=== PATIENT | female | born 1950 | race Caucasian/White ===

== ENCOUNTER 2016-10-05 08:26 | Day surgery (SDC) | payer MEDICARE ==
[~2016-10-05] VITALS: Ht 162.6 cm; Wt 74.4 kg
[2016-10-05] VITALS (12 sets, daily range): BP systolic 121–202; BP diastolic 56–116
[~2016-10-05 08:26] MED LIST: ALBU2.5V4 IH; ALPR0.5T7 PO; AMLO10TA2 PO; AMLO10TA4 PO; AMLO5TAB2 PO; ASP325TEC PO; ASP81TEC PO; ASPI-983 PO; ATOR80TA PO; ATOR80TA75 PO; ATOR80TA76 PO; BISA5TAB8 PO; BUDE10.2 INH; BUDE6HFA IH; CARV25TA PO; CARV3.12 PO; CARV6.252 PO; CLOP75TA28 PO; CLOP75TA69 PO; CLPD75T PO; DILT60TA PO; DOCU-143 PO; FERR-74 PO; FRSM40T PO; FURO-125 PO; FURO40TA4 PO; GLIM1TAB PO; GUAI600T43 PO; HYDR-3924 PO; ISM60TCR PO; LATA2.5D5 OU; LISI-556 PO; LISI10TA2 PO; MTF500T PO; PANT40TA3 PO; PARO20TA5 PO; PARO20TA57 PO; POLY255P PO; POTA10CA43 PO; QUET25TA73 PO; RT-ALBUINH INH; SUCR1TAB PO; SULF-222 PO; TIOT18CA IH; TRAM50TA2 PO; Tramadol Hcl PO; UMEC1BLS IH
[2016-10-05] MEDS ORDERED: HEParin (CATH LAB) 2,000 ML IV ONE (08:28)
[2016-10-05] MEDS ORDERED: NS IV 1000 ML 1,000 ML ONE ×2 (08:28→09:48)
[2016-10-05] MEDS ORDERED: LIDOCAINE 1% INJ 20 ML (XYLOCAINE) VIAL ONE (08:28)
[2016-10-05 09:13] LABS: BILIRUBIN,URINE NEGATIVE (NEGATIVE); KETONES,URINE NEGATIVE (NEGATIVE); LEUKOCYTE ESTERASE ,URINE 1+ (NEGATIVE); NITRITE,URINE NEGATIVE (NEGATIVE); PH,URINE 7 (5-9); PROTEIN,URINE 4+ (NEGATIVE); UROBILINOGEN,URINE NORMAL (NORMAL)
[2016-10-05] MEDS ORDERED: NS IV 1000 ML 1,000 ML IV ONE (09:15)
[2016-10-05 09:17] LABS: MEAN PLATELET VOLUME 9.3 FL (7.4-10.4); RED BLOOD COUNT 3.59 10^6/uL (4.35-5.85); RED CELL DISTRIBUTION WIDTH 15.4 % (10.0-14.5); WHITE BLOOD COUNT 6.9 10^3/uL (4.3-11.0)
--- NOTE | 2016-10-05 09:28 | Diagnostic Imaging Report ---
EXAMINATION: Portable upright radiograph of the chest. INDICATION: Peripheral vascular disease. FINDINGS: The heart is moderately enlarged. There is minimal vascular congestion. The right lung base demonstrate infiltrate and/or atelectasis and adjacent small to moderate effusion minimally improved compared to 09/10/16 exam. No pneumothorax. The mediastinum and forrest appear unremarkable. IMPRESSION: Cardiomegaly with minimal vascular congestion. Persistent right basilar infiltrate or atelectasis with associated small to moderate effusion. Dictated by: Dictated on workstation # [id number]
[2016-10-05 09:31] LABS: INR 0.9 (0.8-1.4); PROTHROMBIN TIME PATIENT 12.2 SEC (12.2-14.7)
[2016-10-05 09:41] LABS: ALBUMIN 3.9 G/DL (3.2-4.5); BILIRUBIN,TOTAL 0.4 MG/DL (0.1-1.0); CALCIUM 9.1 MG/DL (8.5-10.1); CREATININE SERUM 1.75 MG/DL (0.60-1.30); POTASSIUM 4.7 MMOL/L (3.6-5.0); TOTAL PROTEIN 7.5 G/DL (6.4-8.2)
[2016-10-05 09:41] LABS: WBC,URINE 0-2 /HPF
[2016-10-05] MEDS ORDERED: MIDAZOLAM 5 MG/5 ML (VERSED) VIAL ONE (09:48)
[2016-10-05] MEDS ORDERED: NITROGLYCERIN DRIP 25 MG/D5W 250 ML IV ONE (09:48)
[2016-10-05] MEDS ORDERED: fentaNYL INJECTION 100 MCG/2 ML AMP ONE (09:48)
[2016-10-05] MEDS ORDERED: CLOP75TA69 PO (09:52)
[2016-10-05] MEDS ORDERED: CARV3.122 PO (09:52)
[2016-10-05] MEDS ORDERED: DILT30TA PO (09:52)
[2016-10-05] MEDS ORDERED: FURO20TA4 PO (09:52)
[2016-10-05] MEDS ORDERED: HEParin 1000 UNIT/ML (10ML VIAL) FOR BOLUS ONE (10:01)
--- NOTE | 2016-10-05 10:03 | Cardiac Procedure Note-CS/ASA ---
Pre-Procedure Note Pre-Op Procedure Note H&P Reviewed The H&P was reviewed, patient examined and no changes noted. Date H&P Reviewed: Oct 05, 2016 Time H&P Reviewed: 10:02 Conscious Sedation Pre-Proced Time Reviewed: 10:02 ASA Class: 3 Airway Mallampati Classification: ([place] appropriate class) I. II. III, IV Lungs Heart ASA score ASA 1: a normal healthy patient ASA 2: a patient with a mild systemic disease (mid diabetes, controlled hypertension, obesity x ASA 3: a patient with a severe systemic disease that limits activity (angina , COPD, prior Myocardial infarction) ASA 4: a patient with an incapacitating disease that is a constant threat to life (CHF, renal failure) ASA 5: a moribund patient not expected to survive 24 hrs. (ruptured aneurysm) ASA 6: a declared brain patient whose organs are being harvested. For emergent operations, add the letter E after the classification Grade 3 Sedation Plan: Analgesia, Amnesia, Plan communicated to team members, Discussed options with patient/fam, Discussed risks with patient/fam Note The patient is an appropriate candidate to undergo the planned procedure, sedation, and anesthesia. The patient immediately re-assessed prior to indication. ANTONIETA VALADEZ MD Oct 05, 2016 10:03
[2016-10-05] MEDS: NS IV 1000 ML 1,000 ML IV SCH ×4 (10:39→21:34)
[2016-10-05] MEDS ORDERED: meTOprolol 5 MG/5 ML (LOPRESSOR) VIAL ONE (11:19)
[2016-10-05] MEDS ORDERED: ENALAPRILAT 2.5 MG/2 ML (VASOTEC) VIAL IV ONE (11:19)
[2016-10-05] MEDS ORDERED: ASPIRIN 325 MG (5 GR) TABLET ONE (11:33)
[2016-10-05] MEDS ORDERED: CLOPIDOGREL 300 MG (PLAVIX) TABLET PO ONE ×2 (11:34→11:40)
[2016-10-05] MEDS ORDERED: BISACODYL 5 MG (DULCOLAX) TABLET PO SCH (11:45)
[2016-10-05] MEDS ORDERED: RT-ALBUTEROL SULF 2.5 MG/3 ML PRE-MIX VIAL IH PRN (11:45)
[2016-10-05] MEDS ORDERED: ALPRAZolam 0.5 MG (XANAX) TAB PO PRN (11:45)
[2016-10-05] MEDS ORDERED: PATIENT MAY USE OWN MEDS, ALL PO SCH (11:45)
--- NOTE | 2016-10-05 12:55 | DISCHARGE SUMMARY ---
PROCEDURE PHYSICIAN: ANTONIETA VALADEZ PERIPHERAL ANGIOGRAM WITH ANGIOPLASTY REPORT DATE OF PROCEDURE: 10/05/2016 REFERRING PHYSICIAN: Neela Pereira BRIEF HISTORY: Mrs. Cruz is a 66-year-old lady with peripheral arterial disease. She underwent complex intervention to the right lower extremity noted to have a lesion of the left SFA. We are planning to evaluate the SFA and evaluate the run of the right lower extremity. The patient continued to have pain in her left leg. PROCEDURE NOTE: After explaining the procedure to the patient, all pros and cons were explained. All questions were answered. The patient signed a consent, which was placed on the cardiac catheterization laboratory. The right groin was prepped in a sterile fashion. 6-Malian sheath was placed in the right femoral artery. Runoff of the right lower extremity was done. Then I used the crossover catheter, advanced a Storq wire and exchanged it with a long sheath 45 mm 6-Malian to the left common femoral artery. Runoff of the left lower extremity was done. The patient had a significant lesion. I proceeded initially with balloon angioplasty I used [place] 5 x 20 x 80 mm balloon, inflated to 5.5 mm. Then I proceeded with advancement of a Storq wire down to the distal SFA/popliteal artery. Advanced a straight catheter, removed the wire and performed runoff with manual injection with 50/50 contrast and saline to the popliteal artery and trifurcation, then 2 separate views below the knee to the peroneal trunk, then to the foot artery. At this point I reintroduce the Storq wire and removed the straight catheter. I decided to proceed with drug coated balloon angioplasty to the SFA. I used IN.PACT Admiral 6.0 x 40 x 130 placed at the ostium of the SFA. Balloon inflation was done up to 13 atmospheres which is 6.43, inflated for 3 minutes. Angiogram showed excellent results, no residual stenosis. At that point I reintroduce the straight catheter and measured the gradient across the lesion. There was 5 mmHg gradient. Sheath was exchanged again into short 6-Malian sheath. The patient was started on isosorbide nitroglycerin drip and given 5 mg of IV Lopressor and 5 mg of Vasotec. Mynx deployed. Hemostasis achieved. No complication noted. CONCLUSION: 1. Severe stenosis at the left proximal portion of the superficial femoral artery with successful balloon angioplasty, then drug-coated balloon using 6 IN.TACT Admiral 6 x 40 x 130, expanded to 6.43 mm with excellent results. No residual stenosis. Heavily calcified artery down to the trifurcation with good flow below the trifurcation. Nonobstructive disease. 2. Right lower extremity runoff was done using injection through the sheath showed patent stents with mild disease distally, nonobstructive disease. 3. Total contrast used in this procedure is 15 mL. IN DISCUSSION AND RECOMMENDATION: I will continue maximizing medical therapy. Thank you for allowing me to participate in the management of Mrs. Cruz. FINAL DIAGNOSIS: 1. Peripheral arterial disease. 2. Claudication. 3. Hypertension. 4. Hyperlipidemia. 5. Chronic renal insufficiency. 6. Anemia Job ID: [id number] Dictated Date: 10/05/2016 11:44:39 [employer]imator Printing Plate Making Date: 10/05/2016 12:53:20/nisha
[2016-10-05] MEDS: HYDRALAZINE 50 MG PO SCH ×2 (14:00→21:06)
[2016-10-05] MEDS: DILTIAZEM 30 MG (CARDIZEM) TAB PO SCH ×3 (14:00→21:07)
[2016-10-05] MEDS: SUCRALFATE 1 GM (CARAFATE) TAB PO SCH ×2 (16:20→20:23)
[2016-10-05] MEDS ORDERED: ASPIRIN E.C. 81 MG (ECOTRIN) TAB PO SCH (21:00)
[2016-10-05] MEDS ORDERED: ATORVASTATIN 80 MG (LIPITOR) TABLET PO SCH (21:00)
[2016-10-05] MEDS ORDERED: FERROUS SULF 325 MG (IRON) TAB PO SCH (21:00)
[2016-10-05] MEDS ORDERED: QUEtiapine 25 MG (SEROquel) TAB IMMEDIATE RELEASE PO SCH (21:00)
[2016-10-05] MEDS ORDERED: LATANOPROST 0.005% (XALATAN) OPHTH SOLN 2.5 ML OU SCH (21:00)
[2016-10-05] MEDS: oxyCODONE/APAP 5/325MG (PERCOCET 5) TABLET PO PRN (21:05)
[2016-10-05] MEDS: CARVEDILOL 3.125 MG (COREG) TABLET PO SCH (21:08)
[2016-10-06] VITALS (8 sets, daily range): BP systolic 117–170; BP diastolic 57–79
[2016-10-06] MEDS: oxyCODONE/APAP 5/325MG (PERCOCET 5) TABLET PO PRN (02:44)
[2016-10-06 03:56] LABS: MEAN PLATELET VOLUME 9.5 FL (7.4-10.4); RED BLOOD COUNT 2.81 10^6/uL (4.35-5.85); RED CELL DISTRIBUTION WIDTH 15.4 % (10.0-14.5); WHITE BLOOD COUNT 5.3 10^3/uL (4.3-11.0)
[2016-10-06 04:14] LABS: CREATININE SERUM 1.53 MG/DL (0.60-1.30); POTASSIUM 4.3 MMOL/L (3.6-5.0)
[2016-10-06] MEDS: SUCRALFATE 1 GM (CARAFATE) TAB PO SCH (06:44)
[2016-10-06] MEDS: NS IV 1000 ML 1,000 ML IV SCH ×2 (06:45→06:55)
--- NOTE | 2016-10-06 06:49 | Cardiology Progress Note ---
Subjective Subjective/Events-last exam Patient is feeling well, groin is healing well, no hematoma or bleed Review of Systems General: No Chills, No Night Sweats, No Fatigue, No Malaise, No Appetite, No Other HEENT: No Head Aches, No Visual Changes, No Eye Pain, No Ear Pain, No Dysphasia , No Sinus Congestion, No Post Nasal Drip, No Sore Throat, No Other Pulmonary: No Dyspnea, No Cough, No Pleuritic Chest Pain, No Other Cardiovascular: No: Chest Pain, Edema, Lt Headedness, Orthopnea, Other, Palpitations, Paroxysmal Noc. Dyspnea Objective-Cardiology Exam Last Set of Vital Signs Vital Signs 10/06/16 10/06/16 04:00 06:00 Temp 97.6 Pulse 58 Resp 11 B/P 145/64 Pulse Ox 93 O2 Delivery Nasal Cannula O2 Flow Rate 3.00 Capillary Refill : Less Than 3 Seconds I&O Intake and Output 10/06/16 00:00 Intake Total 1590 ml Output Total 850 ml Balance 740 ml Intake Oral 590 ml IV Total 1000 ml Output Urine Total 850 ml General: Alert, Oriented X3, Cooperative HEENT: Atraumatic, PERRLA Neck: Supple, No JVD, No Thyromegaly Lungs: Clear to Auscultation, Normal Air Movement Heart: Regular Rate, Normal S1, Normal S2, No Murmurs Abdomen: Normal Bowel Sounds, Soft, No Tenderness, No Hepatosplenomegaly, No Masses Extremities: No Clubbing, No Cyanosis, No Edema, Normal Pulses, No Tenderness/ Swelling Skin: No Rashes, No Breakdown, No Significant Lesion Neuro: Normal Gait, Normal Speech, Strength at 5/5 X4 Ext, Normal Tone, Sensation Intact Psych/Mental Status: Mental Status NL, Mood NL Results Lab Laboratory Tests 10/05/16 09:05 10/06/16 03:43 A/P-Cardiology Admission Diagnosis Coronary artery disease Peripheral arterial disease Hypertension Hyperlipidemia Anemia Assessment/Plan Peripheral arterial disease, status post balloon angioplasty to the proximal SFA with excellent results, minimal blood loss, minimal contrast use. Anemia, worse today probably secondary to aggressive hydration. Patient has chronic anemia, patient received blood transfusion in the past. I will do anemia analyzer and refer her for evaluation as an outpatient with bobbin hauler Coronary artery disease, multiple intervention the past. Clinically stable. Continue to monitor Hypertension, restart home medication, monitor blood pressure Chronic renal insufficiency, slight improvement after aggressive hydration. Hyperlipidemia, continue current medication monitor ANTONIETA VALADEZ MD Oct 06, 2016 06:49
--- NOTE | 2016-10-06 06:51 | Discharge Inst-Post CATH ---
Discharge Inst-CATH Post Cardiac Cath D/C Inst Follow Up/Plan Please schedule appointment with Dr. Pebbles Ortiz's office for evaluation for anemia Appointment with Dr. Tan's office in one to 2 weeks CARDIAC CATH DISCHARGE INSTRUCTIONS *Hold Metformin for 48 hours post heart cath. ACTIVITY * Go Home directly and rest. * Limit activity of the leg (or wrist if it was used) for 7 days including aerobics, swimming, jogging, bicycling, etc. * Restrict stair-climbing for 7 days if possible, if not, climb up with your non -cath leg, then bring together on the same step. * Avoid lifting, pushing, pulling or excessive movement of the affected extremity for 7 days. * Customary sexual activity may be resumed after 2 days-use caution not to use a position that strains or causes pain to the affected extremity. * No driving for 24 hours. * NO SMOKING. * Avoid straining for bowel movements for 7 days. * Gentle walking on level ground is allowed. * Returning to work will depend on the type of procedure and the results. Your doctor will discuss this with you. CALL YOUR DOCTOR FOR ANY OF THE FOLLOWING: *If bleeding from the puncture site occurs- Apply gentle pressure to site with clean cloth and call your doctor or EMS. * If a knot or lump forms under the skin, increases in size, or causes pain. * If bruising appears to be worsening or moving further down your leg instead of disappearing. * Temperature above 101 F. CARE OF YOUR GROIN INCISION; * Bruising or purple discoloration of the skin near the puncture site is common. * You may shower only, no bathtub bathing for 5 days. Be careful to avoid slipping as your leg may feel stiff. * If a closure device was used on your femoral artery, please see the attached guide regarding care of the device and your leg. * REMOVE the dressing from your groin the next day after your procedure in the shower. CARE OF YOUR WRIST INCISION; * Bruising or purple discoloration of the skin near the puncture site is common. * You may shower. * DO NOT submerge wrist. * Remove dressing in 24 hours. ANTONIETA TAN MD Oct 06, 2016 06:51
[2016-10-06 07:06] LABS: BASOPHILS % (AUTO) 1 % (0-10); EOSINOPHILS # (AUTO) 0.3 10^3/uL (0.0-0.3); EOSINOPHILS % (AUTO) 7 % (0-10); LYMPHOCYTES # (AUTO) 0.7 X 10^3 (1.0-4.0); LYMPHOCYTES % (AUTO) 14 % (12-44); MEAN CORPUSCULAR HEMOGLOBIN 29 PG (25-34); MEAN CORPUSCULAR HGB CONC 31 G/DL (32-36); MEAN CORPUSCULAR VOLUME 93 FL (80-99); MEAN PLATELET VOLUME 8.7 FL (7.4-10.4); MONOCYTES # (AUTO) 0.5 X 10^3 (0.0-1.0); MONOCYTES % (AUTO) 10 % (0-12); NEUTROPHILS # (AUTO) 3.3 X 10^3 (1.8-7.8); NEUTROPHILS % (AUTO) 69 % (42-75); PLATELET COUNT 165 10^3/uL (130-400); RED BLOOD COUNT 3.16 10^6/uL (4.35-5.85); RED CELL DISTRIBUTION WIDTH 15.6 % (10.0-14.5); RETICULOCYTE % 0.81 % (0.50-2.40); WHITE BLOOD COUNT 4.8 10^3/uL (4.3-11.0)
[2016-10-06 07:56] LABS: BAND NEUTROPHILS 0 %; LYMPHOCYTES % (MANUAL) 11 %; NEUTROPHILS % (MANUAL) 70 %
[2016-10-06 07:57] LABS: ANISOCYTOSIS SLIGHT; BASOPHILS % (MANUAL) 1 %; EOSINOPHILS % (MANUAL) 8 %; HYPOCHROMASIA SLIGHT
[2016-10-06] MEDS: CARVEDILOL 3.125 MG (COREG) TABLET PO SCH (08:36)
[2016-10-06] MEDS: DILTIAZEM 30 MG (CARDIZEM) TAB PO SCH (08:37)
[2016-10-06] MEDS: HYDRALAZINE 50 MG PO SCH (08:38)
[2016-10-06] MEDS ORDERED: PARoxetine 20 MG (PAXIL) TAB PO SCH (09:00)
[2016-10-06] MEDS ORDERED: CLOPIDOGREL 75 MG (PLAVIX) TABLET PO SCH (09:00)
[2016-10-06] MEDS ORDERED: PANTOPRAZOLE 40 MG (PROTONIX) TAB PO SCH (09:00)
[2016-10-06] MEDS ORDERED: FUROSEMIDE 20 MG (LASIX) TAB PO SCH (09:00)
[2016-10-06] MEDS ORDERED: ISOSORBIDE MONONITRATE 60 MG (IMDUR) TAB PO SCH (09:00)
[2016-10-06] MEDS ORDERED: DOCUSATE SODIUM 100 MG (COLACE) CAP PO SCH (09:00)
[2016-10-07 07:49] LABS: %SAT TOTAL IRON BINDING CAPIC 22 % (15-50); IPF LEVEL 3.2 % (0.0-7.2); TIBC 240 L UG/DL (280-380); UIBC 188 UG/DL (55-450)
[2016-10-10 08:26] LABS: FOLIC ACID 6.3 NG/ML (1.5-24.0)
== END 2016-10-06 11:10 | disposition home or self-care (01) ==
LOC: CATH 08:26 → ICU 12:10 → CATH 10-06 11:10
PROVIDERS: ATTEND Internal Medicine Cardiovascular Disease
DX: I70.213 Atherosclerosis of native arteries of extremities with intermittent claudication, bilateral legs (principal); I25.10 Atherosclerotic heart disease of native coronary artery without angina pectoris; I12.9 Hypertensive chronic kidney disease with stage 1 through stage 4 chronic kidney disease, or unspecified chronic kidney disease; N18.9 Chronic kidney disease, unspecified; I69.398 Other sequelae of cerebral infarction; R53.1 Weakness; I50.9 Heart failure, unspecified; I49.5 Sick sinus syndrome; E78.5 Hyperlipidemia, unspecified; E11.22 Type 2 diabetes mellitus with diabetic chronic kidney disease; J44.9 Chronic obstructive pulmonary disease, unspecified; Z79.899 Other long term (current) drug therapy; Z87.891 Personal history of nicotine dependence; Z95.820 Peripheral vascular angioplasty status with implants and grafts; Z95.5 Presence of coronary angioplasty implant and graft
CPT/HCPCS: 36246; 36415; 37224; 71010; 75716; 80048; 80053; 81000; 82607; 82746; 83540; 83550; 85007; 85027; 85045; 85055; 85610; 85730; 87081; 93005

== ENCOUNTER 2017-01-05 15:16 | Outpatient (RCR) | payer MEDICARE ==
[2016-10-20 16:20] LABS: BASOPHILS # (AUTO) 0.1 10^3/uL (0.0-0.1); BASOPHILS % (AUTO) 1 % (0-10); EOSINOPHILS # (AUTO) 0.2 10^3/uL (0.0-0.3); EOSINOPHILS % (AUTO) 4 % (0-10); LYMPHOCYTES # (AUTO) 0.5 X 10^3 (1.0-4.0); LYMPHOCYTES % (AUTO) 9 % (12-44); MEAN CORPUSCULAR HEMOGLOBIN 29 PG (25-34); MEAN CORPUSCULAR HGB CONC 31 G/DL (32-36); MEAN CORPUSCULAR VOLUME 93 FL (80-99); MEAN PLATELET VOLUME 9.2 FL (7.4-10.4); MONOCYTES # (AUTO) 0.5 X 10^3 (0.0-1.0); MONOCYTES % (AUTO) 8 % (0-12); NEUTROPHILS # (AUTO) 4.5 X 10^3 (1.8-7.8); NEUTROPHILS % (AUTO) 78 % (42-75); PLATELET COUNT 304 10^3/uL (130-400); RED BLOOD COUNT 3.11 10^6/uL (4.35-5.85); RED CELL DISTRIBUTION WIDTH 16.1 % (10.0-14.5); RETICULOCYTE % 1.52 % (0.50-2.40); WHITE BLOOD COUNT 5.8 10^3/uL (4.3-11.0)
[2016-10-20 16:56] LABS: BILIRUBIN,TOTAL 0.4 MG/DL (0.1-1.0); CALCIUM 8.9 MG/DL (8.5-10.1); CREATININE SERUM 1.67 MG/DL (0.60-1.30); POTASSIUM 4.2 MMOL/L (3.6-5.0); TOTAL PROTEIN 7.3 G/DL (6.4-8.2)
[2016-10-20 17:23] LABS: THYROID STIMULATING HORMONE 2.61 UIU/ML (0.35-4.94)
[2016-11-24 16:24] LABS: BASOPHILS # (AUTO) 0.1 10^3/uL (0.0-0.1); BASOPHILS % (AUTO) 1 % (0-10); EOSINOPHILS # (AUTO) 0.1 10^3/uL (0.0-0.3); EOSINOPHILS % (AUTO) 3 % (0-10); LYMPHOCYTES # (AUTO) 0.5 X 10^3 (1.0-4.0); LYMPHOCYTES % (AUTO) 12 % (12-44); MEAN CORPUSCULAR HEMOGLOBIN 30 PG (25-34); MEAN CORPUSCULAR HGB CONC 31 G/DL (32-36); MEAN CORPUSCULAR VOLUME 99 FL (80-99); MEAN PLATELET VOLUME 8.8 FL (7.4-10.4); MONOCYTES # (AUTO) 0.5 X 10^3 (0.0-1.0); MONOCYTES % (AUTO) 10 % (0-12); NEUTROPHILS # (AUTO) 3.4 X 10^3 (1.8-7.8); NEUTROPHILS % (AUTO) 74 % (42-75); PLATELET COUNT 310 10^3/uL (130-400); RED BLOOD COUNT 2.72 10^6/uL (4.35-5.85); RED CELL DISTRIBUTION WIDTH 15.6 % (10.0-14.5); RETICULOCYTE % 3.37 % (0.50-2.40); WHITE BLOOD COUNT 4.6 10^3/uL (4.3-11.0)
[2016-11-24 16:55] LABS: ALBUMIN 3.9 G/DL (3.2-4.5); BILIRUBIN,TOTAL 0.3 MG/DL (0.1-1.0); CALCIUM 9.1 MG/DL (8.5-10.1); CREATININE SERUM 1.6 MG/DL (0.60-1.30); POTASSIUM 3.9 MMOL/L (3.6-5.0); TOTAL PROTEIN 6.9 G/DL (6.4-8.2)
[2016-12-22 15:21] LABS: BASOPHILS # (AUTO) 0.1 10^3/uL (0.0-0.1); BASOPHILS % (AUTO) 2 % (0-10); EOSINOPHILS # (AUTO) 0.2 10^3/uL (0.0-0.3); EOSINOPHILS % (AUTO) 4 % (0-10); LYMPHOCYTES # (AUTO) 0.6 X 10^3 (1.0-4.0); LYMPHOCYTES % (AUTO) 15 % (12-44); MEAN CORPUSCULAR HEMOGLOBIN 29 PG (25-34); MEAN CORPUSCULAR HGB CONC 30 G/DL (32-36); MEAN CORPUSCULAR VOLUME 95 FL (80-99); MEAN PLATELET VOLUME 9.2 FL (7.4-10.4); MONOCYTES # (AUTO) 0.5 X 10^3 (0.0-1.0); MONOCYTES % (AUTO) 12 % (0-12); NEUTROPHILS # (AUTO) 2.7 X 10^3 (1.8-7.8); NEUTROPHILS % (AUTO) 68 % (42-75); PLATELET COUNT 236 10^3/uL (130-400); RED BLOOD COUNT 3.01 10^6/uL (4.35-5.85); RED CELL DISTRIBUTION WIDTH 13.8 % (10.0-14.5); RETICULOCYTE % 0.73 % (0.50-2.40)
[2016-12-22 15:48] LABS: ALBUMIN 3.8 G/DL (3.2-4.5); BILIRUBIN,TOTAL 0.3 MG/DL (0.1-1.0); CALCIUM 8.9 MG/DL (8.5-10.1); CREATININE SERUM 1.56 MG/DL (0.60-1.30); POTASSIUM 4.2 MMOL/L (3.6-5.0); TOTAL PROTEIN 6.8 G/DL (6.4-8.2)
[2016-12-23 06:55] LABS: %SAT TOTAL IRON BINDING CAPIC 13 L % (15-50); TIBC 295 UG/DL (280-380); UIBC 256 UG/DL (55-450)
[~2017-01-05 15:16] MED LIST changes: +CARV3.122 PO; +DARBEPOETIN 40 MCG/ML (ARANESP) 1 ML VIAL SC SCH; +DARBEPOETIN 60 MCG/ML ARANESP (CANCER CTR) INJ SCH; +DILT30TA PO; +FURO20TA4 PO
[2017-01-05 16:15] LABS: BASOPHILS # (AUTO) 0.1 10^3/uL (0.0-0.1); BASOPHILS % (AUTO) 1 % (0-10); EOSINOPHILS # (AUTO) 0.2 10^3/uL (0.0-0.3); EOSINOPHILS % (AUTO) 3 % (0-10); LYMPHOCYTES # (AUTO) 0.6 X 10^3 (1.0-4.0); LYMPHOCYTES % (AUTO) 12 % (12-44); MEAN CORPUSCULAR HEMOGLOBIN 29 PG (25-34); MEAN CORPUSCULAR HGB CONC 31 G/DL (32-36); MEAN CORPUSCULAR VOLUME 94 FL (80-99); MONOCYTES # (AUTO) 0.5 X 10^3 (0.0-1.0); MONOCYTES % (AUTO) 10 % (0-12); NEUTROPHILS # (AUTO) 3.5 X 10^3 (1.8-7.8); NEUTROPHILS % (AUTO) 73 % (42-75); PLATELET COUNT 273 10^3/uL (130-400); RED CELL DISTRIBUTION WIDTH 14.6 % (10.0-14.5); RETICULOCYTE % 1.18 % (0.50-2.40); WHITE BLOOD COUNT 4.7 10^3/uL (4.3-11.0)
[2017-01-05 16:35] LABS: ALBUMIN 3.9 G/DL (3.2-4.5); BILIRUBIN,TOTAL 0.3 MG/DL (0.1-1.0); CALCIUM 8.7 MG/DL (8.5-10.1); CREATININE SERUM 1.72 MG/DL (0.60-1.30); POTASSIUM 4.6 MMOL/L (3.6-5.0); TOTAL PROTEIN 6.9 G/DL (6.4-8.2)
== END 2017-01-18 | disposition home or self-care (01) ==
LOC: PAR 15:16
PROVIDERS: ATTEND Internal Medicine Hematology & Oncology
DX: D64.9 Anemia, unspecified (principal); N18.4 Chronic kidney disease, stage 4 (severe); I13.0 Hypertensive heart and chronic kidney disease with heart failure and stage 1 through stage 4 chronic kidney disease, or unspecified chronic kidney disease; I50.9 Heart failure, unspecified; I25.10 Atherosclerotic heart disease of native coronary artery without angina pectoris; I73.9 Peripheral vascular disease, unspecified; F17.200 Nicotine dependence, unspecified, uncomplicated; Z95.5 Presence of coronary angioplasty implant and graft; Z79.02 Long term (current) use of antithrombotics/antiplatelets; Z79.82 Long term (current) use of aspirin; Z86.73 Personal history of transient ischemic attack (TIA), and cerebral infarction without residual deficits
CPT/HCPCS: 36415; 80053; 82728; 83540; 83615; 84443; 85025; 85045; 96372; 99213; 99214

== ENCOUNTER 2017-04-13 13:06 | Outpatient (RCR) | payer MEDICARE ==
[2017-01-19 16:06] LABS: BASOPHILS % (AUTO) 1 % (0-10); EOSINOPHILS # (AUTO) 0.2 10^3/uL (0.0-0.3); EOSINOPHILS % (AUTO) 4 % (0-10); LYMPHOCYTES # (AUTO) 0.5 X 10^3 (1.0-4.0); LYMPHOCYTES % (AUTO) 11 % (12-44); MEAN CORPUSCULAR HEMOGLOBIN 28 PG (25-34); MEAN CORPUSCULAR HGB CONC 31 G/DL (32-36); MEAN CORPUSCULAR VOLUME 92 FL (80-99); MEAN PLATELET VOLUME 9.4 FL (7.4-10.4); MONOCYTES # (AUTO) 0.5 X 10^3 (0.0-1.0); MONOCYTES % (AUTO) 10 % (0-12); NEUTROPHILS # (AUTO) 3.6 X 10^3 (1.8-7.8); NEUTROPHILS % (AUTO) 75 % (42-75); PLATELET COUNT 283 10^3/uL (130-400); RED CELL DISTRIBUTION WIDTH 14.9 % (10.0-14.5); RETICULOCYTE % 1.25 % (0.50-2.40); WHITE BLOOD COUNT 4.8 10^3/uL (4.3-11.0)
[2017-01-19 16:30] LABS: ALBUMIN 4.1 G/DL (3.2-4.5); BILIRUBIN,TOTAL 0.3 MG/DL (0.1-1.0); CALCIUM 9.1 MG/DL (8.5-10.1); CREATININE SERUM 1.62 MG/DL (0.60-1.30); POTASSIUM 4.1 MMOL/L (3.6-5.0); TOTAL PROTEIN 7.1 G/DL (6.4-8.2)
[2017-02-02 15:47] LABS: BASOPHILS % (AUTO) 1 % (0-10); EOSINOPHILS # (AUTO) 0.2 10^3/uL (0.0-0.3); EOSINOPHILS % (AUTO) 4 % (0-10); LYMPHOCYTES # (AUTO) 0.5 X 10^3 (1.0-4.0); LYMPHOCYTES % (AUTO) 11 % (12-44); MEAN CORPUSCULAR HEMOGLOBIN 27 PG (25-34); MEAN CORPUSCULAR HGB CONC 30 G/DL (32-36); MEAN CORPUSCULAR VOLUME 90 FL (80-99); MEAN PLATELET VOLUME 9.1 FL (7.4-10.4); MONOCYTES # (AUTO) 0.6 X 10^3 (0.0-1.0); MONOCYTES % (AUTO) 12 % (0-12); NEUTROPHILS # (AUTO) 3.6 X 10^3 (1.8-7.8); NEUTROPHILS % (AUTO) 72 % (42-75); PLATELET COUNT 283 10^3/uL (130-400); RED BLOOD COUNT 3.64 10^6/uL (4.35-5.85); RED CELL DISTRIBUTION WIDTH 15.8 % (10.0-14.5)
[2017-02-16 14:04] LABS: BASOPHILS # (AUTO) 0.1 10^3/uL (0.0-0.1); BASOPHILS % (AUTO) 1 % (0-10); EOSINOPHILS # (AUTO) 0.2 10^3/uL (0.0-0.3); EOSINOPHILS % (AUTO) 4 % (0-10); LYMPHOCYTES # (AUTO) 0.5 X 10^3 (1.0-4.0); LYMPHOCYTES % (AUTO) 12 % (12-44); MEAN CORPUSCULAR HEMOGLOBIN 28 PG (25-34); MEAN CORPUSCULAR HGB CONC 31 G/DL (32-36); MEAN CORPUSCULAR VOLUME 93 FL (80-99); MEAN PLATELET VOLUME 9.5 FL (7.4-10.4); MONOCYTES # (AUTO) 0.5 X 10^3 (0.0-1.0); MONOCYTES % (AUTO) 10 % (0-12); NEUTROPHILS # (AUTO) 3.4 X 10^3 (1.8-7.8); NEUTROPHILS % (AUTO) 73 % (42-75); PLATELET COUNT 238 10^3/uL (130-400); RED BLOOD COUNT 3.92 10^6/uL (4.35-5.85); RED CELL DISTRIBUTION WIDTH 18.5 % (10.0-14.5); WHITE BLOOD COUNT 4.6 10^3/uL (4.3-11.0)
[2017-02-16 14:15] LABS: ALBUMIN 4.1 G/DL (3.2-4.5); BILIRUBIN,TOTAL 0.4 MG/DL (0.1-1.0); CALCIUM 9.2 MG/DL (8.5-10.1); CREATININE SERUM 1.63 MG/DL (0.60-1.30); POTASSIUM 4.1 MMOL/L (3.6-5.0); TOTAL PROTEIN 7.5 G/DL (6.4-8.2)
[2017-03-02 16:15] LABS: BASOPHILS # (AUTO) 0.1 10^3/uL (0.0-0.1); BASOPHILS % (AUTO) 1 % (0-10); EOSINOPHILS # (AUTO) 0.2 10^3/uL (0.0-0.3); EOSINOPHILS % (AUTO) 4 % (0-10); LYMPHOCYTES # (AUTO) 0.6 X 10^3 (1.0-4.0); LYMPHOCYTES % (AUTO) 12 % (12-44); MEAN CORPUSCULAR HEMOGLOBIN 29 PG (25-34); MEAN CORPUSCULAR HGB CONC 31 G/DL (32-36); MEAN CORPUSCULAR VOLUME 93 FL (80-99); MEAN PLATELET VOLUME 9.4 FL (7.4-10.4); MONOCYTES # (AUTO) 0.6 X 10^3 (0.0-1.0); MONOCYTES % (AUTO) 12 % (0-12); NEUTROPHILS # (AUTO) 3.5 X 10^3 (1.8-7.8); NEUTROPHILS % (AUTO) 71 % (42-75); PLATELET COUNT 234 10^3/uL (130-400); RED CELL DISTRIBUTION WIDTH 19.5 % (10.0-14.5); WHITE BLOOD COUNT 4.9 10^3/uL (4.3-11.0)
[2017-03-16 16:39] LABS: BASOPHILS # (AUTO) 0.1 10^3/uL (0.0-0.1); BASOPHILS % (AUTO) 1 % (0-10); EOSINOPHILS # (AUTO) 0.3 10^3/uL (0.0-0.3); EOSINOPHILS % (AUTO) 5 % (0-10); LYMPHOCYTES # (AUTO) 0.6 X 10^3 (1.0-4.0); LYMPHOCYTES % (AUTO) 12 % (12-44); MEAN CORPUSCULAR HEMOGLOBIN 29 PG (25-34); MEAN CORPUSCULAR HGB CONC 31 G/DL (32-36); MEAN CORPUSCULAR VOLUME 92 FL (80-99); MEAN PLATELET VOLUME 10.1 FL (7.4-10.4); MONOCYTES # (AUTO) 0.5 X 10^3 (0.0-1.0); MONOCYTES % (AUTO) 10 % (0-12); NEUTROPHILS # (AUTO) 3.7 X 10^3 (1.8-7.8); NEUTROPHILS % (AUTO) 71 % (42-75); PLATELET COUNT 212 10^3/uL (130-400); RED BLOOD COUNT 4.21 10^6/uL (4.35-5.85); RED CELL DISTRIBUTION WIDTH 18.3 % (10.0-14.5); WHITE BLOOD COUNT 5.2 10^3/uL (4.3-11.0)
[2017-03-16 17:06] LABS: ALBUMIN 3.9 GM/DL (3.2-4.5); BILIRUBIN,TOTAL 0.4 MG/DL (0.1-1.0); CALCIUM 9.3 MG/DL (8.5-10.1); CREATININE SERUM 1.74 MG/DL (0.60-1.30); ICTERUS 0.5 (-100-1.9); POTASSIUM 4.4 MMOL/L (3.6-5.0); TOTAL PROTEIN 7.4 GM/DL (6.4-8.2)
[2017-03-17 10:54] LABS: %SAT TOTAL IRON BINDING CAPIC 39 % (15-50); TIBC 230 ug/dL (280-380)
[2017-03-18 07:23] LABS: UIBC 140 ug/dL
[~2017-04-13 13:06] MED LIST changes: -DARBEPOETIN 60 MCG/ML ARANESP (CANCER CTR) INJ SCH; +FERRIC CARBOXYMALTOSE (CANCER) 750 MG in NS (IVPB) CANCER CENTER 250 ML IV SCH
[2017-04-13 16:06] LABS: BASOPHILS # (AUTO) 0.1 10^3/uL (0.0-0.1); BASOPHILS % (AUTO) 2 % (0-10); EOSINOPHILS # (AUTO) 0.2 10^3/uL (0.0-0.3); EOSINOPHILS % (AUTO) 4 % (0-10); LYMPHOCYTES # (AUTO) 0.5 X 10^3 (1.0-4.0); LYMPHOCYTES % (AUTO) 11 % (12-44); MEAN CORPUSCULAR HEMOGLOBIN 29 PG (25-34); MEAN CORPUSCULAR HGB CONC 31 G/DL (32-36); MEAN CORPUSCULAR VOLUME 93 FL (80-99); MEAN PLATELET VOLUME 9.8 FL (7.4-10.4); MONOCYTES # (AUTO) 0.4 X 10^3 (0.0-1.0); MONOCYTES % (AUTO) 10 % (0-12); NEUTROPHILS # (AUTO) 3.5 X 10^3 (1.8-7.8); NEUTROPHILS % (AUTO) 75 % (42-75); PLATELET COUNT 246 10^3/uL (130-400); RED CELL DISTRIBUTION WIDTH 18.9 % (10.0-14.5); RETICULOCYTE % 0.49 % (0.50-2.40); WHITE BLOOD COUNT 4.6 10^3/uL (4.3-11.0)
[2017-04-13 16:36] LABS: ALBUMIN 3.9 GM/DL (3.2-4.5); BILIRUBIN,TOTAL 0.4 MG/DL (0.1-1.0); CREATININE SERUM 2.3 MG/DL (0.60-1.30); POTASSIUM 4.5 MMOL/L (3.6-5.0); TOTAL PROTEIN 7.3 GM/DL (6.4-8.2)
[2017-04-19] MEDS ORDERED: DARBEPOETIN 40 MCG/ML (ARANESP) 1 ML VIAL SC SCH (14:30)
== END 2017-04-19 | disposition home or self-care (01) ==
LOC: PAR 13:06
PROVIDERS: ATTEND Internal Medicine Hematology & Oncology
DX: N18.4 Chronic kidney disease, stage 4 (severe) (principal); D63.1 Anemia in chronic kidney disease; I13.0 Hypertensive heart and chronic kidney disease with heart failure and stage 1 through stage 4 chronic kidney disease, or unspecified chronic kidney disease; I50.9 Heart failure, unspecified; I25.10 Atherosclerotic heart disease of native coronary artery without angina pectoris; I73.9 Peripheral vascular disease, unspecified; F17.200 Nicotine dependence, unspecified, uncomplicated; Z95.5 Presence of coronary angioplasty implant and graft; Z79.02 Long term (current) use of antithrombotics/antiplatelets; Z79.82 Long term (current) use of aspirin; Z86.73 Personal history of transient ischemic attack (TIA), and cerebral infarction without residual deficits
CPT/HCPCS: 36415; 80053; 82728; 83540; 83550; 85025; 85045; 96365; 96372; 99213

== ENCOUNTER 2017-05-18 13:08 | Outpatient (RCR) | payer MEDICARE ==
[2017-04-20 16:46] LABS: BASOPHILS # (AUTO) 0.1 10^3/uL (0.0-0.1); BASOPHILS % (AUTO) 1 % (0-10); EOSINOPHILS # (AUTO) 0.2 10^3/uL (0.0-0.3); EOSINOPHILS % (AUTO) 3 % (0-10); LYMPHOCYTES # (AUTO) 0.6 X 10^3 (1.0-4.0); LYMPHOCYTES % (AUTO) 11 % (12-44); MEAN CORPUSCULAR HEMOGLOBIN 29 PG (25-34); MEAN CORPUSCULAR HGB CONC 31 G/DL (32-36); MEAN CORPUSCULAR VOLUME 92 FL (80-99); MEAN PLATELET VOLUME 9.6 FL (7.4-10.4); MONOCYTES # (AUTO) 0.6 X 10^3 (0.0-1.0); MONOCYTES % (AUTO) 11 % (0-12); NEUTROPHILS # (AUTO) 3.9 X 10^3 (1.8-7.8); NEUTROPHILS % (AUTO) 73 % (42-75); PLATELET COUNT 254 10^3/uL (130-400); RED BLOOD COUNT 3.55 10^6/uL (4.35-5.85); RED CELL DISTRIBUTION WIDTH 18.7 % (10.0-14.5); WHITE BLOOD COUNT 5.3 10^3/uL (4.3-11.0)
[2017-04-20 16:53] LABS: ALBUMIN 4.1 GM/DL (3.2-4.5); BILIRUBIN,TOTAL 0.3 MG/DL (0.1-1.0); CALCIUM 8.9 MG/DL (8.5-10.1); CREATININE SERUM 1.75 MG/DL (0.60-1.30); POTASSIUM 4.3 MMOL/L (3.6-5.0); TOTAL PROTEIN 7.5 GM/DL (6.4-8.2)
[~2017-05-18 13:08] MED LIST changes: -FERRIC CARBOXYMALTOSE (CANCER) 750 MG in NS (IVPB) CANCER CENTER 250 ML IV SCH
[2017-05-18 15:52] LABS: BASOPHILS # (AUTO) 0.1 10^3/uL (0.0-0.1); BASOPHILS % (AUTO) 1 % (0-10); EOSINOPHILS # (AUTO) 0.2 10^3/uL (0.0-0.3); EOSINOPHILS % (AUTO) 4 % (0-10); LYMPHOCYTES # (AUTO) 0.6 X 10^3 (1.0-4.0); LYMPHOCYTES % (AUTO) 13 % (12-44); MEAN CORPUSCULAR HEMOGLOBIN 30 PG (25-34); MEAN CORPUSCULAR HGB CONC 31 G/DL (32-36); MEAN CORPUSCULAR VOLUME 95 FL (80-99); MEAN PLATELET VOLUME 9.5 FL (7.4-10.4); MONOCYTES # (AUTO) 0.4 X 10^3 (0.0-1.0); MONOCYTES % (AUTO) 10 % (0-12); NEUTROPHILS # (AUTO) 3.1 X 10^3 (1.8-7.8); NEUTROPHILS % (AUTO) 71 % (42-75); PLATELET COUNT 257 10^3/uL (130-400); RED BLOOD COUNT 3.42 10^6/uL (4.35-5.85); RED CELL DISTRIBUTION WIDTH 16.3 % (10.0-14.5); WHITE BLOOD COUNT 4.3 10^3/uL (4.3-11.0)
== END 2017-06-08 11:36 | disposition home or self-care (01) ==
LOC: PAR 13:08
PROVIDERS: ATTEND Internal Medicine Hematology & Oncology
DX: N18.4 Chronic kidney disease, stage 4 (severe) (principal); D63.1 Anemia in chronic kidney disease; I13.0 Hypertensive heart and chronic kidney disease with heart failure and stage 1 through stage 4 chronic kidney disease, or unspecified chronic kidney disease; I50.9 Heart failure, unspecified; I25.10 Atherosclerotic heart disease of native coronary artery without angina pectoris; I73.9 Peripheral vascular disease, unspecified; F17.200 Nicotine dependence, unspecified, uncomplicated; Z95.5 Presence of coronary angioplasty implant and graft; Z79.02 Long term (current) use of antithrombotics/antiplatelets; Z79.82 Long term (current) use of aspirin; Z86.73 Personal history of transient ischemic attack (TIA), and cerebral infarction without residual deficits
CPT/HCPCS: 36415; 80053; 85025; 96372

== ENCOUNTER → 2017-05-31 | Outpatient (CLI) | payer MEDICARE ==
[~2017-05-31] VITALS: Ht 165.1 cm; Wt 70.3 kg
[~2017-05-31] MED LIST changes: +CATHETER FLUSH 10 ML SYR IV PRN; -DARBEPOETIN 40 MCG/ML (ARANESP) 1 ML VIAL SC SCH; +REGADENOSON 0.4 MG/5 ML SYR (LEXISCAN) IV ONE
[2017-05-31 13:08] VITALS: BP 190/90
[2017-05-31 13:11] VITALS: BP 191/84
--- NOTE | 2017-06-01 09:39 | STRESS TEST ---
DATE OF SERVICE: 05/31/2017 LEXISCAN MYOVIEW STRESS TEST REPORT: Baseline heart rate is 86. Baseline blood pressure 190/90. Baseline EKG is sinus rhythm with ST depression in II, III, aVF, V3, V4, V5 and V6. SUMMARY: 1. The patient was injected with 10.09 mCi of technetium-99 Myoview and the resting images were obtained. Then, the patient received 0.4 mg of Lexiscan followed by 29.3 mCi of technetium-99 Myoview. Throughout the test, there were no EKG changes. Continued to have the baseline EKG abnormality. 2. The resting and stress images were reviewed and compared in the short axis, horizontal long axis, and vertical long axis views. Review of the images showed patchy uptake with mild reversible ischemia at the basal to mid anterior wall at the mid to apical inferior wall and inferolateral wall. SSS is 7, SDS 5, TID value 0.98. On the gated images, the left ventricle is dilated with diffuse left ventricular hypokinesia, calculated ejection fraction 28%. CONCLUSION: 1. The patient tolerated Lexiscan well. 2. Baseline EKG abnormality persisted throughout test. 3. Dilated left ventricle with diffuse left ventricular hypokinesia, calculated ejection fraction 28%. 4. Patchy uptake with questionable reversible ischemia involving the basal to mid anterior wall and the mid to apical inferior wall and inferolateral wall. Job ID: [id number] DocumentID: [id number] Dictated Date: 05/31/2017 16:06:05 Tape Edge Machine Operator Date: 05/31/2017 17:17:20 Dictated By: ANTONIETA VALADEZ MD
== END ==
LOC: CARD 09:24
PROVIDERS: ATTEND Physician Assistant
DX: I11.0 Hypertensive heart disease with heart failure (principal); I50.22 Chronic systolic (congestive) heart failure; I65.23 Occlusion and stenosis of bilateral carotid arteries
CPT/HCPCS: 78452; 93017; 93306

== ENCOUNTER 2017-06-21 13:09 | Outpatient (RCR) | payer MEDICARE ==
[~2017-06-21 13:09] MED LIST changes: -CATHETER FLUSH 10 ML SYR IV PRN; -REGADENOSON 0.4 MG/5 ML SYR (LEXISCAN) IV ONE
[2017-06-21 13:17] LABS: BASOPHILS # (AUTO) 0.1 10^3/uL (0.0-0.1); BASOPHILS % (AUTO) 1 % (0-10); EOSINOPHILS # (AUTO) 0.2 10^3/uL (0.0-0.3); EOSINOPHILS % (AUTO) 4 % (0-10); LYMPHOCYTES # (AUTO) 0.5 X 10^3 (1.0-4.0); LYMPHOCYTES % (AUTO) 9 % (12-44); MEAN CORPUSCULAR HEMOGLOBIN 31 PG (25-34); MEAN CORPUSCULAR HGB CONC 31 G/DL (32-36); MEAN CORPUSCULAR VOLUME 98 FL (80-99); MEAN PLATELET VOLUME 8.9 FL (7.4-10.4); MONOCYTES # (AUTO) 0.4 X 10^3 (0.0-1.0); MONOCYTES % (AUTO) 8 % (0-12); NEUTROPHILS % (AUTO) 78 % (42-75); PLATELET COUNT 258 10^3/uL (130-400); RED BLOOD COUNT 2.78 10^6/uL (4.35-5.85); RED CELL DISTRIBUTION WIDTH 14.3 % (10.0-14.5); WHITE BLOOD COUNT 5.1 10^3/uL (4.3-11.0)
[2017-06-21 13:35] LABS: ALBUMIN 4.1 GM/DL (3.2-4.5); BILIRUBIN,TOTAL 0.4 MG/DL (0.1-1.0); CALCIUM 8.9 MG/DL (8.5-10.1); CREATININE SERUM 1.76 MG/DL (0.60-1.30); POTASSIUM 4.2 MMOL/L (3.6-5.0); TOTAL PROTEIN 7.3 GM/DL (6.4-8.2)
[2017-06-21] MEDS ORDERED: DARBEPOETIN 40 MCG/ML (ARANESP) 1 ML VIAL SC SCH (14:00)
== END 2017-06-24 | disposition home or self-care (01) ==
LOC: ONC 13:09
PROVIDERS: ATTEND Internal Medicine Hematology & Oncology
DX: N18.4 Chronic kidney disease, stage 4 (severe) (principal); D63.1 Anemia in chronic kidney disease; I13.0 Hypertensive heart and chronic kidney disease with heart failure and stage 1 through stage 4 chronic kidney disease, or unspecified chronic kidney disease; I50.9 Heart failure, unspecified; I25.10 Atherosclerotic heart disease of native coronary artery without angina pectoris; I73.9 Peripheral vascular disease, unspecified; F17.200 Nicotine dependence, unspecified, uncomplicated; Z95.5 Presence of coronary angioplasty implant and graft; Z79.02 Long term (current) use of antithrombotics/antiplatelets; Z79.82 Long term (current) use of aspirin; Z86.73 Personal history of transient ischemic attack (TIA), and cerebral infarction without residual deficits
CPT/HCPCS: 36415; 80053; 82728; 83540; 85025; 96372

== ENCOUNTER 2017-07-19 12:45 | Outpatient (RCR) | payer MEDICARE ==
[2017-07-05 13:16] LABS: BASOPHILS # (AUTO) 0.1 10^3/uL (0.0-0.1); BASOPHILS % (AUTO) 2 % (0-10); EOSINOPHILS # (AUTO) 0.2 10^3/uL (0.0-0.3); EOSINOPHILS % (AUTO) 5 % (0-10); HEMATOCRIT 30 % (35-52); HEMOGLOBIN 9.2 G/DL (11.5-16.0); LYMPHOCYTES # (AUTO) 0.5 X 10^3 (1.0-4.0); LYMPHOCYTES % (AUTO) 9 % (12-44); MEAN CORPUSCULAR HEMOGLOBIN 31 PG (25-34); MEAN CORPUSCULAR HGB CONC 31 G/DL (32-36); MEAN CORPUSCULAR VOLUME 99 FL (80-99); MEAN PLATELET VOLUME 8.9 FL (7.4-10.4); MONOCYTES # (AUTO) 0.6 X 10^3 (0.0-1.0); MONOCYTES % (AUTO) 11 % (0-12); NEUTROPHILS # (AUTO) 3.7 X 10^3 (1.8-7.8); NEUTROPHILS % (AUTO) 73 % (42-75); PLATELET COUNT 247 10^3/uL (130-400); RED CELL DISTRIBUTION WIDTH 13.9 % (10.0-14.5); WHITE BLOOD COUNT 5.1 10^3/uL (4.3-11.0)
[~2017-07-19 12:45] MED LIST changes: +DARBEPOETIN 40 MCG/ML (ARANESP) 1 ML VIAL SC SCH; -FERR-74 PO; +FERR325T18 PO
[2017-07-19 13:22] LABS: BASOPHILS # (AUTO) 0.1 10^3/uL (0.0-0.1); BASOPHILS % (AUTO) 1 % (0-10); EOSINOPHILS # (AUTO) 0.3 10^3/uL (0.0-0.3); EOSINOPHILS % (AUTO) 5 % (0-10); HEMATOCRIT 28 % (35-52); HEMOGLOBIN 8.8 G/DL (11.5-16.0); LYMPHOCYTES # (AUTO) 0.3 X 10^3 (1.0-4.0); LYMPHOCYTES % (AUTO) 6 % (12-44); MEAN CORPUSCULAR HEMOGLOBIN 30 PG (25-34); MEAN CORPUSCULAR HGB CONC 32 G/DL (32-36); MEAN CORPUSCULAR VOLUME 94 FL (80-99); MEAN PLATELET VOLUME 8.8 FL (7.4-10.4); MONOCYTES # (AUTO) 0.6 X 10^3 (0.0-1.0); MONOCYTES % (AUTO) 12 % (0-12); NEUTROPHILS # (AUTO) 4.1 X 10^3 (1.8-7.8); NEUTROPHILS % (AUTO) 77 % (42-75); PLATELET COUNT 307 10^3/uL (130-400); RED BLOOD COUNT 2.94 10^6/uL (4.35-5.85); RED CELL DISTRIBUTION WIDTH 13.8 % (10.0-14.5); WHITE BLOOD COUNT 5.3 10^3/uL (4.3-11.0)
== END 2017-10-03 | disposition home or self-care (01) ==
LOC: ONC 12:45
PROVIDERS: ATTEND Internal Medicine Hematology & Oncology
DX: N18.4 Chronic kidney disease, stage 4 (severe) (principal); D63.1 Anemia in chronic kidney disease; I13.0 Hypertensive heart and chronic kidney disease with heart failure and stage 1 through stage 4 chronic kidney disease, or unspecified chronic kidney disease; I50.9 Heart failure, unspecified; I25.10 Atherosclerotic heart disease of native coronary artery without angina pectoris; I73.9 Peripheral vascular disease, unspecified; F17.200 Nicotine dependence, unspecified, uncomplicated; Z95.5 Presence of coronary angioplasty implant and graft; Z79.02 Long term (current) use of antithrombotics/antiplatelets; Z79.82 Long term (current) use of aspirin; Z86.73 Personal history of transient ischemic attack (TIA), and cerebral infarction without residual deficits
CPT/HCPCS: 36415; 83090; 83921; 85025; 96372

== ENCOUNTER → 2017-09-14 | Outpatient (CLI) | payer MEDICARE ==
[~2017-09-14] MED LIST changes: -DARBEPOETIN 40 MCG/ML (ARANESP) 1 ML VIAL SC SCH; +FERR-74 PO; -FERR325T18 PO
--- NOTE | 2017-09-14 11:59 | Diagnostic Imaging Report ---
PROCEDURE: CT chest without contrast. TECHNIQUE: Multiple contiguous axial images were obtained through the chest without the use of intravenous contrast. INDICATION: COPD. FINDINGS: There is emphysema changes in the lungs predominantly seen in the upper lobes. The right lower lobe demonstrate areas of scarring and consolidation with swirling of vessels and underlying pleural thickening and loculated fluid suggestive of a round atelectasis. No previous CT scans are available for comparison. The heart size is enlarged. No pericardial effusion. Extensive coronary artery calcifications and probable stents are seen in place. Minimally prominent mediastinal lymph nodes are seen with no significant enlargement. The hilar vessels are not opacified with no obvious hilar mass seen. The axilla demonstrate no significant lymphadenopathy. Sections in the upper abdomen demonstrate a low-density 1.8 cm adrenal nodule favored to be an adenoma. The osseous structures demonstrate degenerative changes in the mid and lower thoracic spine. IMPRESSION: 1. Emphysema. 2. Loculated pleural effusion in the right lung base with associated pleural thickening and areas of consolidation suggestive of scarring and round atelectasis. Followup exam in 4 months is suggested to ensure stability. 3. 1.8 cm low density left adrenal nodule is probably an adenoma. Dictated by: Dictated on workstation # [id number]
== END ==
LOC: RAD 11:21
PROVIDERS: ATTEND Nurse Practitioner Family
DX: J43.9 Emphysema, unspecified (principal); J90 Pleural effusion, not elsewhere classified; J92.9 Pleural plaque without asbestos; J18.1 Lobar pneumonia, unspecified organism; E27.8 Other specified disorders of adrenal gland; R91.8 Other nonspecific abnormal finding of lung field; F17.200 Nicotine dependence, unspecified, uncomplicated
CPT/HCPCS: 71250

== ENCOUNTER → 2017-10-26 | Outpatient (CLI) | payer MEDICARE ==
[~2017-10-26] MED LIST changes: -FERR-74 PO; +FERR325T18 PO
[2017-10-26 16:41] LABS: ABG BASE EXCESS 1.8 MMOL/L (-2.5-2.5); ABG OXYGEN SATURATION 100 % (94-100); ABG PCO2 39 MMHG (35-45); ABG PH 7.43 (7.37-7.43); ABG PO2 183 MMHG (79-93); ABG TCO2 26.8 MMOL/L (21.0-31.0); ALLENS TEST YES-POS; INSPIRED O2 3; PATIENT TEMP 98.6; VENTILATOR NO
--- NOTE | 2017-10-26 17:46 | Diagnostic Imaging Report ---
INDICATION: COPD and dyspnea. TIME OF EXAM: 3:50 p.m. COMPARISON: Correlation is made with prior study from 10/05/2016. FINDINGS: The heart remains enlarged but stable. Moderate right effusion persists. There has been improved aeration to the right base since prior exam. There is a slightly nodular density in the right base, indeterminate. The left lung is clear. There is no pneumothorax. IMPRESSION: Improved aeration to the right base with continued moderate right effusion. There is a somewhat rounded nodular density in the right base, indeterminate. Continued close followup is recommended to confirm stability or resolution. Dictated by: Dictated on workstation # [id number]
== END ==
LOC: RAD 15:17
PROVIDERS: ATTEND Nurse Practitioner Family
DX: J90 Pleural effusion, not elsewhere classified (principal); J44.9 Chronic obstructive pulmonary disease, unspecified; R91.8 Other nonspecific abnormal finding of lung field; F17.200 Nicotine dependence, unspecified, uncomplicated
CPT/HCPCS: 71046; 82805

== ENCOUNTER → 2017-11-02 | Outpatient (CLI) | payer MEDICARE ==
--- NOTE | 2017-11-02 14:41 | Diagnostic Imaging Report ---
INDICATION: Pleural effusion, pulmonary nodule. PA and lateral chest. COMPARISON: Comparison made with a study from 10/26/2017. FINDINGS: There continues to be a right pleural effusion. It is unchanged in volume from the prior exam. There is a 1 cm pulmonary nodule at the right lateral lung base that appears stable from the prior study. IMPRESSION: Pleural effusion and pulmonary nodule in the right lower chest unchanged since 10/26/2017. Dictated by: Dictated on workstation # [id number]
== END ==
LOC: RAD 12:57
PROVIDERS: ATTEND Nurse Practitioner Family
DX: J90 Pleural effusion, not elsewhere classified (principal); R91.1 Solitary pulmonary nodule; J44.9 Chronic obstructive pulmonary disease, unspecified; F17.200 Nicotine dependence, unspecified, uncomplicated
CPT/HCPCS: 71046